=== PATIENT | male | born 1955 | race Caucasian/White ===

== ENCOUNTER 2017-01-07 11:03 | Inpatient (IN) | payer SELFPAY ==
[2017-01-07] MEDS ORDERED: NS 1,000 ML IV ONE (11:14)
[2017-01-07] MEDS ORDERED: ONDANSETRON 4 MG/2 ML VIAL IVP ONE (11:15)
[2017-01-07 12:57] LABS: ALANINE AMINOTRANSFERASE 247 IU/L (21-72); ALBUMIN 4.7 g/dL (3.5-5.0); ALKALINE PHOSPHATASE 157 IU/L (38-126); ANION GAP 20 mEq/L (8-16); ASPARTATE AMINOTRANSFERASE 578 IU/L (17-59); BILIRUBIN,TOTAL 3.6 mg/dL (0.1-1.4); BILIRUBIN-CONJUGATED 2.2 mg/dL (0.0-0.5); BILIRUBIN-UNCONJUGATED 1.4 mg/dL (0.0-1.1); CALCIUM 11.6 mg/dL (8.5-10.4); CARBON DIOXIDE 24 mEq/l (22-31); CHLORIDE 91 mEq/L (97-110); CREATININE 0.9 mg/dL (0.7-1.3); GLOMERULAR FILTRATION RATE > 60; GLUCOSE 102 mg/dL (70-100); INR 0.99 (0.83-1.16); SODIUM 135 mEq/L (134-144); TOTAL PROTEIN 8.3 g/dL (6.3-8.2)
[2017-01-07 12:58] LABS: APTT 24.3 SEC (23.0-38.0)
--- NOTE | 2017-01-07 13:04 | EDPHY ---
H & P Stated Complaint: Nausea/Vomiting x 8 days, Dark stools x 3 days Time Seen by Provider: 01/07/17 12:44 - Personal History Current Tetanus Diphtheria and Acellular Pertussis (TDAP): No Tetanus Vaccine Date: 2003 - Medical/Surgical History Hx Asthma: No Hx Chronic Respiratory Disease: No Hx Diabetes: No Hx Cardiac Disease: No Hx Renal Disease: No Hx Cirrhosis: Yes Hx Alcoholism: Yes Hx HIV/AIDS: No Hx Splenectomy or Spleen Trauma: No Other PMH: Hep C, ETOH, Pneumonia - Social History Smoking Status: Current every day smoker Constitutional: Initial Vital Signs Temperature (C) 36.3 C 01/07/17 11:11 Heart Rate 117 H 01/07/17 11:11 Respiratory Rate 18 01/07/17 11:11 Blood Pressure 152/106 H 01/07/17 11:11 O2 Sat (%) 95 01/07/17 11:11 O2 Delivery Mode Room Air Allergies/Adverse Reactions: No Known Allergies Allergy (Verified 01/07/17 11:11) Home Medications: Medication Instructions Recorded NK [No Known Home Meds] 01/07/17 Medical Decision Making - Diagnostics Imaging: Discussed imaging studies w/ order desk caller Radiologist ED Course/Re-evaluation: CHIEF COMPLAINT: Nausea vomiting dehydration black tarry stools HISTORY OF PRESENT ILLNESS: 61-year-old gentleman who lives alone. He endorses the fact that he is unable to eat much over the last 6 days due to severe vomiting. He also states he has some stocking glove type numbness pattern. He states that he used to drink significant amount alcohol but does not do that any more. 5 he denies any medical problems whatsoever. He states he has never been sick before a week to 10 days ago. He feels so lethargic and weak now from his dehydration and inability to take in food that he is having difficulty ambulating around his apartment and needs to hold onto things. Before he was ill he was completely mobile and functioning normally. REVIEW OF SYSTEMS: A 10 point review of systems was performed and is negative with the exception of the elements mentioned in the history of present illness. PHYSICAL EXAM: HR, BP, O2 Sat, RR. Temp noted General Appearance: Alert, well hydrated, appropriate, and non-toxic appearing. Head: Atraumatic without scalp tenderness or obvious injury Eyes: Pupils equal, round, reactive to light and accommodation, EOMI, no trauma , no injection. Ears: Clear bilaterally, no perforation, normal landmarks Nose: Atraumatic, no rhinorrhea, clear. Throat: There is no erythema or exudates, no lesions, normal tonsils, mucus membranes moist. Neck: Supple, nontender, no lymphadenopathy. Respiratory: No retractions, no distress, no wheezes, and no accessory muscle use. Lungs are clear to auscultation bilaterally. Cardiovascular: Regular rate and rhythm, no murmurs, rubs, or gallops. Bilateral carotid, radial, dorsalis pedis, and posterior tibial pulses intact. Good capillary refill all extremities. Gastrointestinal: Abdomen is soft, diffuse tenderness with hardness in the right upper quadrant potentially the liver, non-distended, no masses, no rebound , no guarding, no peritoneal signs. Musculoskeletal: Normal active ROM of all extremities, atraumatic. Neurological: Alert, appropriate, and interactive. The patient has normal DTRs and non-focal cranial nerves, motor, sensory, and cerebellar exam. Skin: A hint of jaundice and very dry skin. No rashes, good turgor, no nodules on palpation. Past medical history: Denies any medical history Past surgical history: Denies any surgery Family history: No significant noncontributory family history Social history: Lives alone, although patient will not endorse alcoholism he has a history of alcoholism. Denies tobacco or drug use. Not employed DIAGNOSTICS/PROCEDURES/CRITICAL CARE TIME: Study: CT of the abdomen and pelvis with IV contrast Indication: chronic nausea vomiting Results: CT scan of the abdomen pelvis was obtained. The results of the study are ascites. The study was read by the radiologist, Dr. Gutierrez. I viewed the images myself on the PACS system. DIFFERENTIAL DIAGNOSIS: The differential diagnosis for the patient's nausea and vomiting included but was not limited to gastroenteritis, gastritis, appendicitis, and medication side effect. The differential diagnosis for the patient's lower GI bleeding included but was not limited to diverticulosis, tumor, AVM, hemorrhoid, and upper GI Bleed. MEDICAL DECISION MAKING: This patient is slightly dehydrated and certainly weak and lethargic. I do get a hint of jaundice and I am concerned about liver failure in this patient. I am going to check an ammonia level also since this patient seems a bit confused at times. Additionally, he is too weak to walk around his house. I will evaluate his abdomen with a CT scan. Allergies lipase and protime are pending also. He has had some mild black tarry stools. All of patient's LFTs are elevated as is his lipase. He will require admission for hepatitis and pancreatitis. Acute hepatitis panel ordered. INR is normal. CT shows ascites, likely acute alcohol hepatitis. Spoke with hospitalist service. Dr. Woods accepts admission. - Data Points Laboratory Results: Laboratory Results 01/07/17 12:25 01/07/17 12:25 01/07/17 01/07/17 01/07/17 13:25 12:25 12:25 WBC RBC Hgb Hct MCV MCH MCHC RDW Plt Count MPV Neut % (Auto) Lymph % (Auto) Hardeman % (Auto) Eos % (Auto) Baso % (Auto) Nucleat RBC Rel Count Absolute Neuts (auto) Absolute Lymphs (auto) Absolute Monos (auto) Absolute Eos (auto) Absolute Basos (auto) Absolute Nucleated RBC Immature Gran % Seg Neutrophils % Band Neutrophils % Lymphocytes % Monocytes % Immature Gran # Absolute Seg Neuts Absolute Band Neuts Absolute Lymphocytes Absolute Monocytes Nucleated RBCs Platelet Estimate Polychromasia Smear Review By PT 13.0 SEC SEC (12.0-15.0) INR 0.99 (0.83-1.16) APTT 24.3 SEC SEC (23.0-38.0) Sodium 135 mEq/L mEq/L (134-144) Potassium 4.0 mEq/L mEq/L (3.5-5.2) Chloride 91 mEq/L L mEq/L (97-110) Carbon Dioxide 24 mEq/l mEq/l (22-31) Anion Gap 20 mEq/L H mEq/L (8-16) BUN 21 mg/dL mg/dL (7-23) Creatinine 0.9 mg/dL mg/dL (0.7-1.3) Estimated GFR > 60 Glucose 102 mg/dL H mg/dL (70-100) Calcium 11.6 mg/dL H mg/dL (8.5-10.4) Phosphorus 0.9 mg/dL L mg/dL (2.5-4.5) Total Bilirubin 3.6 mg/dL H mg/dL (0.1-1.4) Conjugated Bilirubin 2.2 mg/dL H mg/dL (0.0-0.5) Unconjugated Bilirubin 1.4 mg/dL H mg/dL (0.0-1.1) AST 578 IU/L H IU/L (17-59) ALT 247 IU/L H IU/L (21-72) Alkaline Phosphatase 157 IU/L H IU/L (38-126) Ammonia 14.0 uMOL/L uMOL/L (9.0-30.0) Total Protein 8.3 g/dL H g/dL (6.3-8.2) Albumin 4.7 g/dL g/dL (3.5-5.0) Lipase 3995 IU/L H IU/L (23-300) Hepatitis A IgM Ab Hep Bs Antigen Hep B Core IgM Ab Hepatitis C Antibody 01/07/17 01/07/17 12:25 12:05 WBC 9.84 10^3/uL H 10^3/uL (3.80-9.50) RBC 4.52 10^6/uL 10^6/uL (4.40-6.38) Hgb 16.0 g/dL g/dL (13.7-17.5) Hct 42.9 % % (40.0-51.0) MCV 94.9 fL fL (81.5-99.8) MCH 35.4 pg H pg (27.9-34.1) MCHC 37.3 g/dL H g/dL (32.4-36.7) RDW 16.0 % H % (11.5-15.2) Plt Count 73 10^3/uL L 10^3/uL (150-400) MPV 12.7 fL H fL (8.7-11.7) Neut % (Auto) 83.8 % H % (39.3-74.2) Lymph % (Auto) 11.4 % L % (15.0-45.0) Hardeman % (Auto) 3.8 % L % (4.5-13.0) Eos % (Auto) 0.0 % L % (0.6-7.6) Baso % (Auto) 0.1 % L % (0.3-1.7) Nucleat RBC Rel Count 1.1 % H % (0.0-0.2) Absolute Neuts (auto) 8.25 10^3/uL H 10^3/uL (1.70-6.50) Absolute Lymphs (auto) 1.12 10^3/uL 10^3/uL (1.00-3.00) Absolute Monos (auto) 0.37 10^3/uL 10^3/uL (0.30-0.80) Absolute Eos (auto) 0.00 10^3/uL L 10^3/uL (0.03-0.40) Absolute Basos (auto) 0.01 10^3/uL L 10^3/uL (0.02-0.10) Absolute Nucleated RBC 0.11 10^3/uL H 10^3/uL (0-0.01) Immature Gran % 0.9 % % (0.0-1.1) Seg Neutrophils % 47 % % Band Neutrophils % 40 % % Lymphocytes % 12 % % Monocytes % 1 % % Immature Gran # 0.09 10^3/uL 10^3/uL (0.00-0.10) Absolute Seg Neuts 4.62 10^/uL 10^/uL (1.70-6.50) Absolute Band Neuts 3.94 10^3/uL H 10^3/uL (0.00-0.70) Absolute Lymphocytes 1.18 10^3/uL 10^3/uL (1.00-3.00) Absolute Monocytes 0.10 10^3/uL L 10^3/uL (0.30-0.80) Nucleated RBCs 2 /100 WBC H /100 WBC (0-0) Platelet Estimate DECREASED L (ADEQ) Polychromasia 1+ H Smear Review By Pending PT INR APTT Sodium Potassium Chloride Carbon Dioxide Anion Gap BUN Creatinine Estimated GFR Glucose Calcium Phosphorus Total Bilirubin Conjugated Bilirubin Unconjugated Bilirubin AST ALT Alkaline Phosphatase Ammonia Total Protein Albumin Lipase Hepatitis A IgM Ab Pending Hep Bs Antigen Pending Hep B Core IgM Ab Pending Hepatitis C Antibody Pending Medications Given: Discontinued Medications Sodium Chloride (Ns) 1,000 mls @ 0 mls/hr IV ONCE ONE PRN Reason: Wide Open Stop: 01/07/17 11:15 Last Admin: 01/07/17 11:22 Dose: 1,000 mls Ondansetron HCl (Zofran) 4 mg IVP EDNOW ONE Stop: 01/07/17 11:16 Last Admin: 10/15/17 11:22 Dose: 4 mg Departure - Departure Disposition: [facility] Inpatient Acute Clinical Impression: Hepatitis, Dehydration, Weakness Pancreatitis Qualifiers: Chronicity: acute Pancreatitis type: alcohol induced Acute pancreatitis complication: unspecified Qualified Code(s): K85.20 - Alcohol induced acute pancreatitis without necrosis or infection Ascites Qualifiers: Ascites type: due to alcoholic hepatitis Qualified Code(s): K70.11 - Alcoholic hepatitis with ascites Nausea and vomiting Qualifiers: Vomiting type: unspecified Vomiting Intractability: intractable Qualified Code( s): R11.2 - Nausea with vomiting, unspecified Condition: Fair Referrals: Patient,NotPresent [Unknown] - As per Instructions
[2017-01-07 13:10] LABS: % IMMATURE GRANULYOCYTES 0.9 % (0.0-1.1); ABSOLUTE IMMATURE GRANULOCYTES 0.09 10^3/uL (0.00-0.10); ABSOLUTE NRBC COUNT 0.11 10^3/uL (0-0.01); ADD DIFF? NO; HEMATOCRIT 42.9 % (40.0-51.0); MEAN CELL HEMOGLOBIN 35.4 pg (27.9-34.1); MEAN CELL HEMOGLOBIN CONCENTR. 37.3 g/dL (32.4-36.7); MEAN CELL VOLUME 94.9 fL (81.5-99.8); MEAN PLATELET VOLUME 12.7 fL (8.7-11.7); PLATELET COUNT 73 10^3/uL (150-400); RED BLOOD CELL COUNT 4.52 10^6/uL (4.40-6.38)
[2017-01-07 13:16] LABS: NRBC-AUTO% 1.1 % (0.0-0.2)
[2017-01-07 13:20] LABS: ADD MORPH? YES; ADD SCAN? NO
[2017-01-07] MEDS ORDERED: IOPAMIDOL (ISOVUE-300) 100 ML BTL ONE (13:38)
[2017-01-07 14:25] LABS: PLATELET ESTIMATE DECREASED (ADEQ)
[2017-01-07 14:29] LABS: POLYCHROMASIA 1+
[2017-01-07] MEDS ORDERED: ACETAMINOPHEN 325 MG TAB PO PRN (15:23)
[2017-01-07] MEDS ORDERED: PROMETHAZINE HCL 25 MG/ML INJ IVP PRN (15:23)
[2017-01-07] MEDS ORDERED: ONDANSETRON DISINTEGRATING 4 MG TAB PO PRN (15:23)
[2017-01-07] MEDS ORDERED: oxyCODONE IR 5 MG TAB PO PRN (15:23)
[2017-01-07] MEDS ORDERED: ONDANSETRON 4 MG/2 ML VIAL IVP PRN (15:23)
[2017-01-07] MEDS ORDERED: MELATONIN 3 MG TAB PO PRN (16:30)
--- NOTE | 2017-01-07 17:09 | GHP ---
[f rep st] HISTORY AND PHYSICAL DATE OF ADMISSION: 01/07/2017 CHIEF COMPLAINT: Nausea, vomiting, inability to take p.o. HISTORY: This is a 61-year-old man who has a past medical history of alcohol abuse and chronic liver disease, as well as reported hepatitis C per him, presenting with about 10 days of difficulty eating secondary to nausea, as well as difficulty ambulating. He notes he has also had dark tarry stools f or the last several days. He notes that when he tries to the eat, he begins to feel nauseous as if h e is going to throw up, and therefore has not really been eating. He has only had a few episodes of vomiting, however. He admits to having a very heavy alcohol use history back in 2011, but states trevon t more recently he has only been drinking every couple of weeks. He has not really seen a doctor sin ce 2011 when he was told that he has liver disease that appeared to be cured. He notes this doctor w as in [place] who told him that. He denies any fevers or chills. He denies any significant abdomin al pain, though he does admit to having mild mid epigastric pain. PAST MEDICAL HISTORY: 1. Alcohol abuse. 2. Chronic liver disease/question cirrhosis. 3. Alcoholic hepatitis. 4. Question hepatitis C. PAST SURGICAL HISTORY: Umbilical hernia repair. FAMILY HISTORY: Parents are both . He notes multiple family members with alcohol abuse issu es. SOCIAL HISTORY: The patient is currently unemployed. He previously worked as a computer engineering technologist. He is single, never been . No children. He denies tobacco use. He notes that he currently drinks alcohol about 2 drinks every 2 weeks. REVIEW OF SYSTEMS: A 10-point review of systems obtained, negative except as per HPI. MEDICATIONS: 1. Multivitamin. 2. Melatonin. 3. Ibuprofen. ALLERGIES: No known drug allergies. PHYSICAL EXAM: VITAL SIGNS: BP 139/80, heart rate 113, respiratory rate 16, O2 sats 93% on room air , temperature is 36.6. GENERAL APPEARANCE: This is a chronically ill-appearing man. He is thin and somewhat disheveled. EYES: Anicteric. HEENT: Oropharynx clear. CARDIOVASCULAR: Tachycardic, re gular, no MRG. PULMONARY: CTA bilaterally to anterior exam. ABDOMEN: Soft, bowel sounds are prese nt. There is mild tenderness to palpation in the mid epigastric and right upper quadrant region with out rebound or guarding. EXTREMITIES: No clubbing, cyanosis, or edema. SKIN: Warm, dry, well perf used. NEURO/PSYCH: Oriented, appropriate, pleasant. CLINICAL DATA: Labs reviewed. White blood cell count is 9.8, hematocrit 42.9. Chemistry is notable for an anion gap of 20, total bilirubin of 3.6, AST of 578, ALT of 247, lipase of 3995. Chest x-ray personally reviewed and interpreted shows small left effusion and interstitial infiltrate on the left. Abdominal CT showing a small amount of ascites, steatohepatitis, worsening fibrosis of the liver, zee creatic calcifications are present. There are T11 and T10 compression fractures that are new from 20 11, but age indeterminate. ASSESSMENT/PLAN: This is a 61-year-old man, past medical history of alcohol abuse and chronic liver disease, who presents with what appears to be acute alcoholic hepatitis and likely alcoholic related pancreatitis. 1. Alcoholic hepatitis. His labs are consistent with that, though he denies any recent heavy alcoho l use. I do have a suspicion for underlying cirrhosis as well. He states he has been told he has he patitis C, but on review of labs here he has only a negative hep C antibody from 2012, and states trevon t it was our hospital that told me has hep C. This is being recheck. I am strongly recommending com plete cessation of alcohol, and explained to him the usual course of severe liver disease, which he s tates he understands. 2. Acute pancreatitis. This is likely an acute on chronic picture with pancreatic calcifications no navi on abdominal CT. He has only very minimal abdominal pain, and does have present bowel sounds, an d would like to try some liquids. We will start with a liquid diet and advance as tolerated. We nely l continue IV fluids. We will recheck a lipase in the morning. 3. Anion gap metabolic acidosis. Suspect this is secondary to alcoholic ketoacidosis in the setting of essentially not eating or drinking for 10 days. IV fluids will be running over night. We will r echeck in the morning. 4. Alcohol abuse. Again, the patient states this is largely in remission, though I suspect he is us ing more than he admits to. He does not have any signs of withdrawal at this time, and we will hold off on initiating CIWA protocol. 5. Gait instability. We will ask PT, OT to evaluate. He does not have any visual or cognitive defi cits to suggest Wernicke's encephalopathy, but would have a low threshold of starting high-dose johanny ine if these should develop. He may require [facility] prior to discharge home. 6. Protein calorie malnutrition. We will ask for a dietary consult. 7. Dark stools. The patient concerned that he is having a GI bleed. His H and H are normal at this time. We will check an occult blood. Suspect if this is positive that this is more related to a sl ow bleed possibly related to underlying gastritis, and that he will not require EGD or colonoscopy wh ile in house, though we will follow his counts. DISPOSITION: 1. Inpatient status. Suspect he will need greater than 48 hours stay for evaluation and management of above. 2. Patient is new to my care. Old records reviewed, summarized as per HPI and past medical history. Care plan reviewed with ER physician, including plans for treatment of pancreatitis. /[id number]/MODL
[2017-01-07] MEDS: NS 1,000 ML IV SCH ×2 (17:12→22:06)
[2017-01-07] MEDS: FOLIC ACID 1 MG TAB PO SCH (17:32)
[2017-01-07] MEDS: THIAMINE HCL 100 MG TAB PO SCH (17:33)
[2017-01-08] MEDS: NS 1,000 ML IV SCH ×3 (03:19→16:52)
[2017-01-08 05:03] LABS: % IMMATURE GRANULYOCYTES 1.4 % (0.0-1.1); ABSOLUTE IMMATURE GRANULOCYTES 0.12 10^3/uL (0.00-0.10); ABSOLUTE NRBC COUNT 0.03 10^3/uL (0-0.01); ADD DIFF? NO; ADD MORPH? NO; ADD SCAN? NO; ATYPICAL LYMPHOCYTE FLAG 0 (0-99); FRAGMENT RBC FLAG 0 (0-99); HEMATOCRIT 30.4 % (40.0-51.0); HEMOGLOBIN 11.4 g/dL (13.7-17.5); LEFT SHIFT FLG 10 (0-99); MEAN CELL HEMOGLOBIN 35.5 pg (27.9-34.1); MEAN CELL HEMOGLOBIN CONCENTR. 37.5 g/dL (32.4-36.7); MEAN CELL VOLUME 94.7 fL (81.5-99.8); MEAN PLATELET VOLUME 12.5 fL (8.7-11.7); NRBC-AUTO% 0.3 % (0.0-0.2); PLATELET CLUMPS FLAG 20 (0-99); PLATELET COUNT 67 10^3/uL (150-400); RED BLOOD CELL COUNT 3.21 10^6/uL (4.40-6.38); RED CELL DISTRIBUTION WIDTH 16.3 % (11.5-15.2)
[2017-01-08 05:07] LABS: LIPEMIA HEMOLYSIS FLAG 100 (0-99)
[2017-01-08 05:16] LABS: ALANINE AMINOTRANSFERASE 143 IU/L (21-72); ALBUMIN 2.4 g/dL (3.5-5.0); ALKALINE PHOSPHATASE 102 IU/L (38-126); ANION GAP 9 mEq/L (8-16); ASPARTATE AMINOTRANSFERASE 320 IU/L (17-59); BILIRUBIN,TOTAL 2.2 mg/dL (0.1-1.4); BILIRUBIN-CONJUGATED 1.4 mg/dL (0.0-0.5); BILIRUBIN-UNCONJUGATED 0.8 mg/dL (0.0-1.1); CALCIUM 8.8 mg/dL (8.5-10.4); CARBON DIOXIDE 20 mEq/l (22-31); CHLORIDE 103 mEq/L (97-110); CREATININE 0.7 mg/dL (0.7-1.3); GLOMERULAR FILTRATION RATE > 60; GLUCOSE 71 mg/dL (70-100); POTASSIUM 3.1 mEq/L (3.5-5.2); SODIUM 132 mEq/L (134-144); TOTAL PROTEIN 4.8 g/dL (6.3-8.2)
[2017-01-08] MEDS: THIAMINE HCL 100 MG TAB PO SCH (07:37)
[2017-01-08] MEDS: FOLIC ACID 1 MG TAB PO SCH (07:37)
[2017-01-08] MEDS ORDERED: MULTIVITAMINS 1 EACH TAB PO SCH (09:00)
[2017-01-08] MEDS ORDERED: ENOXAPARIN 40 MG/0.4 ML SYR SC SCH (09:00)
[2017-01-08] MEDS ORDERED: PROTOCOL POTASSIUM 1 DOSE MISC PRN (09:32)
[2017-01-08] MEDS ORDERED: PROTOCOL MAGNESIUM 1 DOSE IV PRN (09:32)
--- NOTE | 2017-01-08 10:28 | PDMN ---
Medical Necessity Medical necessity: Patient meets INPT criteria per physician note and [facility] Pancreatitis (likely acute alcoholic hepatitis and acute on chronic pancreatitis : 10 day hx nausea/difficulty eating, several days of dark tarry stools; lipase 3995, anion gap 20/metabolic acidosis, elevated LFT's/bili; dehydration, lethargy, tachy/HR 106 p initial IV fluids; hx chronic liver disease, alcohol abuse, Hep C; anticipated LOS > 2 midnights for ongoing IV hydration, trial of liq diet, monitoring for occult bleed.). .
[2017-01-08] MEDS ORDERED: MAGNESIUM SULF 1 GM/DEXTROSE 100 ML IV ONE (10:56)
[2017-01-08 11:40] LABS: HEMATOCRIT 33.8 % (40.0-51.0); HEMOGLOBIN 12.7 g/dL (13.7-17.5)
[2017-01-08] MEDS: POTASSIUM Cl (KCl) 100 ML IV SCH ×5 (12:36→20:30)
--- NOTE | 2017-01-08 15:26 | ASMTCASEMG ---
Living Arrangements What is your living Answers: Alone arrangement? Who do you live with? Type Of Residence What kind of residence do Answers: House you live in? Discharge Plan Comments Coordination Status Comments Notes: Pt is a 61 y/o man admitted w/ acute hepatitis, pancreatitis and dehydration. OT/PT has been ordered. OT is recommending home vs SNF. Awaiting PT is evaluate and make their recommendations. Needs are TBD at this time. CM to follow. Date Signed: 01/08/2017 03:26 PM Electronically Signed By:ÁLVARO Dubon
[2017-01-08] MEDS ORDERED: TEMAZEPAM 15 MG CAP PO PRN (17:33)
--- NOTE | 2017-01-08 17:38 | HOSPPROG ---
Hospitalist Progress Note Assessment/Plan: 1. presumed pancreatitis -IVF, clears earlier tolerated, but NPO now and GI eval requested (discussed care plan with Dr Beavers) 2. Thrombocytopenia -review of prev records shows this is new 3. Hepatitis, ? alcoholic vs acute on chronic cirrhosis -improved LFTs today - triad of thrombocytopenia/anemia/hepatitis, GI consult requested -discussed possible EGD/colonoscopy here vs as an o/p -neg hep C ab 4. Hx alcoholism -encouraged complete abstinence -PT/OT eval -will hold off on detox protocol for now as denies daily use 5. Anemia -stable on repeat -neg hemoccult but described melena at home -GI eval as above -PPI Dispo- 1-2 more mdnts depending upon GI eval Subjective: Nervous about studies/work up. Denies pain. No n/v. Says colonsocopy when 51 yo, none since. PCP Dr Yancey, but hasn't seen him in several years Objective: Vital Signs Temp Pulse Resp BP Pulse Ox 98.2 F 100 18 148/92 H 92 01/08/17 15:33 01/08/17 15:33 01/08/17 15:33 01/08/17 15:33 01/08/17 15:33 Laboratory Results 01/08/17 11:20 01/08/17 06:00 01/07/17 01/08/17 01/09/17 11:59 11:59 11:59 Intake Total 3951 Output Total 500 100 Balance 3451 -100 PT 13.0 SEC (12.0-15.0) 01/07/17 12:25 INR 0.99 (0.83-1.16) 01/07/17 12:25 - Time Spent With Patient Time Spent with Patient: greater than 35 minutes Time Spent with Patient: Greater than 35 minutes spent on this patients care, greater than 50% of time spent counseling, educating, and coordinating care regarding the above mentioned plan. - Physical Exam Constitutional: no apparent distress, appears nourished, not in pain Eyes: anicteric sclera Ears, Nose, Mouth, Throat: moist mucous membranes Cardiovascular: regular rate and rhythym, no murmur, rub, or gallop Respiratory: no respiratory distress, no rales or rhonchi, clear to auscultation Gastrointestinal: normoactive bowel sounds, soft, non-tender abdomen, no palpable masses, No ascites, No distension Skin: warm Psychiatric: interacting appropriately, not encephalopathic, anxious ICD10 Worksheet Patient Problems: Problems Problem Status Onset Ascites Acute Dehydration Acute Hepatitis Acute Nausea and vomiting Acute Pancreatitis Acute Weakness Acute Alcoholic cirrhosis Active Hypocalcemia Active Hypomagnesemia Active Hyponatremia Active Liver enzymes abnormal Active Macrocytic anemia Active Portal hypertension Active
[2017-01-08] MEDS ORDERED: D5W 1/2 NS 1,000 ML IV SCH (17:45)
[2017-01-08] MEDS ORDERED: HEPATITIS B VIRUS VACCINE-PF 20 MCG/ML VIAL IM ONE (17:46)
[2017-01-08] MEDS ORDERED: HEPATITIS A VIRUS VACCINE 1,440 UNIT/ML SYRINGE IM ONE (17:46)
[2017-01-08 18:56] LABS: POTASSIUM 3.6 mEq/L (3.5-5.2)
[2017-01-08 23:22] VITALS: BP 137/82; PULSE 93; RESP 14; TEMP 98.1; O2SAT 92
--- NOTE | 2017-01-09 07:03 | HOSPPROG ---
Hospitalist Progress Note Assessment/Plan: Cross Cover: Notified by RN that patient was planning to leave AMA. Reviewed chart: plan for EGD to evaluate complaints of melena. Discussed with patient who wanted to leave despite my advice because he was "unhappy" with his care, including not being able to sleep in the hospital. Per RN he had been verbally abusive with both her and the laboratory staff. Patient proceeded to leave AMA. Objective: Vital Signs Temp Pulse Resp BP Pulse Ox 36.7 C 93 14 137/82 H 92 01/08/17 23:22 01/08/17 23:22 01/08/17 23:22 01/08/17 23:22 01/08/17 23:22 Laboratory Results 01/08/17 11:20 01/08/17 18:37 01/08/17 01/09/17 01/10/17 05:59 05:59 05:59 Intake Total 3951 1550 Output Total 500 100 Balance 3451 1450 PT 13.0 SEC (12.0-15.0) 01/07/17 12:25 INR 0.99 (0.83-1.16) 01/07/17 12:25 ICD10 Worksheet Patient Problems: Problems Problem Status Onset Ascites Acute Dehydration Acute Hepatitis Acute Nausea and vomiting Acute Pancreatitis Acute Weakness Acute Alcoholic cirrhosis Active Hypocalcemia Active Hypomagnesemia Active Hyponatremia Active Liver enzymes abnormal Active Macrocytic anemia Active Portal hypertension Active
--- NOTE | 2017-01-09 10:41 | ASDISCHSUM ---
Discharge Information Plan Status: Medically Cleared to Leave: Discharge Date:01/09/2017 07:15 AM CM D/C Disposition: ADT D/C Disposition:Against Medical Advice Projected Discharge Date:01/09/2017 07:15 AM Transportation at D/C: Discharge Delay Reason: Follow-Up Date:01/09/2017 07:15 AM Discharge Slot: Final Diagnosis: Placement Information Patient Contact Information Contact Name:SWATI Relationship: Address: Home Phone: Work Phone: City: Alternate Phone: State/[employer] Code: Email: Financial Information Financial Class:Self-Pay Primary Plan Desc:SELF PAY Primary Plan Number: Secondary Plan Desc: Secondary Plan Number: Assessment Information [facility] Initial CM Assessment Living Arrangements What is your living Answers: Alone arrangement? Who do you live with? Type Of Residence What kind of residence do Answers: House you live in? Discharge Plan Comments Coordination Status Comments Notes: Pt is a 61 y/o man admitted w/ acute hepatitis, pancreatitis and dehydration. OT/PT has been ordered. OT is recommending home vs SNF. Awaiting PT is evaluate and make their recommendations. Needs are TBD at this time. CM to follow. Date Signed: 01/08/2017 03:26 PM Electronically Signed By:ÁLVARO Dubon Intervention Information Intervention Type:*Incorrect Registration Date of Service:01/07/2017 10:26 AM Patient Type:Inpatient Staff Member:JAMIL Ritter Susan Hours: Discipline: Severity: Comment:
== END 2017-01-09 07:15 | disposition left against medical advice (07) | DRG 438 ==
LOC: EDUNIT# → OBSVTOIN 15:25 → F3E 15:36
PROVIDERS: ADMIT Internal Medicine; ATTEND Internal Medicine
DX: K85.20 Alcohol induced acute pancreatitis without necrosis or infection (principal); E43 Unspecified severe protein-calorie malnutrition; E87.2 Acidosis; F10.188 Alcohol abuse with other alcohol-induced disorder; K70.11 Alcoholic hepatitis with ascites; D64.9 Anemia, unspecified
CPT/HCPCS: 97161-GP; 97165-GO; G0472; J2405; J3475; Q9967

== ENCOUNTER 2017-01-14 10:51 | Inpatient (IN) | payer SELFPAY ==
[2017-01-14] MEDS ORDERED: NS 1,000 ML IV ONE (11:02)
--- NOTE | 2017-01-14 11:02 | EDPHY ---
H & P Stated Complaint: hospitalized last week/left AMA sunday/weakness/cough/abd pain HPI/ROS: HPI CHIEF COMPLAINT: Abdominal pain, nausea, cough, recent hospitalization with leaving AMA. HISTORY OF PRESENT ILLNESS: Patient is a 61-year-old male, alcoholic, presents emergency room a global weakness. Patient's main complaint is that he feels weak globally. Additionally complains of some abdominal discomfort vague in nature, associated nausea. No fever. He states that he thinks he needs to be readmitted to the hospital due to his global weakness. Past Medical History: Questionable hepatitis-C, liver cirrhosis, alcohol abuse , alcohol-induced pancreatitis Past Surgical History: Umbilical hernia repair. Social History: Last drink 2-3 weeks ago. Family History: Noncontributory ROS REVIEW OF SYSTEMS: A comprehensive 10 point review of systems is otherwise negative aside from elements mentioned in the history of present illness. Exam Constitutional appears well nontoxic triage nursing summary reviewed, vital signs reviewed, awake/alert. Eyes normal conjunctivae and sclera, EOMI, PERRLA. HENT normal inspection, atraumatic, moist mucus membranes, no epistaxis, neck supple/ no meningismus, no raccoon eyes. Respiratory clear to auscultation bilaterally, normal breath sounds, no respiratory distress, no wheezing. Cardiovascular rate normal, regular rhythm, no murmur, no edema, distal pulses normal. Gastrointestinal soft, non-tender, no rebound, no guarding, normal bowel sounds, no distension, no pulsatile mass. Genitourinary no CVA tenderness. Musculoskeletal no midline vertebral tenderness, full range of motion, no calf swelling, no tenderness of extremities, no meningismus, good pulses, neurovascularly intact. Skin pink, warm, & dry, no rash, skin atraumatic. Neurologic awake, alert and oriented x 3, AAOx3, moves all 4 extremities equally, motor intact, sensory intact, CN II-XII intact, normal cerebellar, normal vision, normal speech. Psychiatric normal mood/affect. Heme/Lymph/Immune no lymphadenopathy. Differential diagnosis includes but is not limited to and in no particular order : Bowel obstruction, appendicitis, gallbladder disease, diverticulitis, colitis , enteritis, perforated viscus, gastritis, GERD, esophagitis, urinary tract infection, pyelonephritis, kidney stones Medical Decision Making: Plan for this patient IV establishment with blood draw , IV fluids for hydration, check electrolytes, lipase. Re-evaluate. I do not feel that he needs CT scan at this time. Re-evaluation: Plan will be for admission to the hospital for acute pancreatitis, dehydration, generalized weakness and electrolyte disturbance. Hypokalemia. ED x-ray chest one view negative for acute cardiopulmonary disease. EKG interpretation by me on record in [facility] system. Impression time of EKG 11:58 a.m., sinus rhythm rate of 80. Nonischemic. Unremarkable EKG. Source: Patient - Personal History Current Tetanus/Diphtheria Vaccine: No Tetanus Vaccine Date: 2003 - Medical/Surgical History Hx Asthma: No Hx Chronic Respiratory Disease: No Hx Diabetes: No Hx Cardiac Disease: No Hx Renal Disease: No Hx Cirrhosis: Yes Hx Alcoholism: Yes Hx HIV/AIDS: No Hx Splenectomy or Spleen Trauma: No Other PMH: Hep C, ETOH, Pneumonia/pancreatitis - Social History Smoking Status: Current every day smoker Constitutional: Initial Vital Signs Temperature (C) 36.4 C 01/14/17 10:56 Heart Rate 114 H 01/14/17 10:56 Respiratory Rate 20 01/14/17 10:56 Blood Pressure 127/90 H 01/14/17 10:56 O2 Sat (%) 93 01/14/17 10:56 O2 Delivery Mode Room Air Allergies/Adverse Reactions: No Known Allergies Allergy (Verified 01/14/17 10:55) Home Medications: Medication Instructions Recorded Ibuprofen [Motrin (*)] 400 mg PO DAILY PRN 01/07/17 Melatonin [Melatonin 3 MG (*)] 9 mg PO HS PRN 01/07/17 Multivitamins [Multivitamin (*)] 1 each PO DAILY 01/07/17 Nyquil 30 ml PO Q6 PRN 01/14/17 Medical Decision Making - Data Points Laboratory Results: Laboratory Results 01/14/17 11:10 01/14/17 11:10 Medications Given: Enoxaparin Sodium (Lovenox) 40 mg SC DAILY JEREMIAS Stop: 07/14/17 08:59 Last Admin: 01/15/17 08:54 Dose: 40 mg Potassium Chloride 40 meq/ (Sodium Chloride) 1,000 mls @ 150 mls/hr IV CONT JEREMIAS Stop: 07/13/17 12:14 Last Admin: 01/15/17 09:27 Dose: 1,000 mls Multivitamins (Tab-A-Linda) 1 each PO DAILY JEREMIAS Stop: 07/14/17 08:59 Last Admin: 01/15/17 08:54 Dose: 1 each Nicotine (Nicoderm Cq) 21 mg TD DAILY JEREMIAS Stop: 07/13/17 16:29 Last Admin: 01/15/17 08:56 Dose: 21 mg Discontinued Medications Sodium Chloride (Ns) 1,000 mls @ 0 mls/hr IV EDNOW ONE; Wide Open PRN Reason: Protocol Stop: 01/14/17 11:03 Last Admin: 01/14/17 11:16 Dose: 1,000 mls Potassium Chloride (Potassium Cl 10 Meq (Premix)) 100 mls @ 100 mls/hr IV Q1H JEREMIAS Stop: 01/14/17 14:14 Last Admin: 01/14/17 13:49 Dose: Not Given Magnesium Sulfate/Dextrose (Magnesium Sulf 1 Gm (Premix)) 100 mls @ 100 mls/hr IV ONCE ONE Stop: 01/14/17 13:14 Last Admin: 01/14/17 13:49 Dose: Not Given Departure - Departure Disposition: [facility] Acute Clinical Impression: Generalized weakness, Hypokalemia Pancreatitis Qualifiers: Chronicity: acute Pancreatitis type: other Acute pancreatitis complication: unspecified Qualified Code(s): K85.80 - Other acute pancreatitis without necrosis or infection Condition: Fair
[2017-01-14 11:24] LABS: % IMMATURE GRANULYOCYTES 1.5 % (0.0-1.1); ABSOLUTE IMMATURE GRANULOCYTES 0.13 10^3/uL (0.00-0.10); ADD DIFF? NO; ADD MORPH? NO; ADD SCAN? NO; ATYPICAL LYMPHOCYTE FLAG 90 (0-99); FRAGMENT RBC FLAG 10 (0-99); HEMATOCRIT 37.1 % (40.0-51.0); HEMOGLOBIN 13.4 g/dL (13.7-17.5); LEFT SHIFT FLG 10 (0-99); LIPEMIA HEMOLYSIS FLAG 90 (0-99); MEAN CELL HEMOGLOBIN 35.7 pg (27.9-34.1); MEAN CELL HEMOGLOBIN CONCENTR. 36.1 g/dL (32.4-36.7); MEAN CELL VOLUME 98.9 fL (81.5-99.8); MEAN PLATELET VOLUME 9.8 fL (8.7-11.7); PLATELET CLUMPS FLAG 10 (0-99); PLATELET COUNT 368 10^3/uL (150-400); RED BLOOD CELL COUNT 3.75 10^6/uL (4.40-6.38)
[2017-01-14 11:33] LABS: ALANINE AMINOTRANSFERASE 111 IU/L (21-72); ALBUMIN 3.5 g/dL (3.5-5.0); ALKALINE PHOSPHATASE 170 IU/L (38-126); ANION GAP 16 mEq/L (8-16); ASPARTATE AMINOTRANSFERASE 111 IU/L (17-59); BILIRUBIN,TOTAL 1.5 mg/dL (0.1-1.4); BILIRUBIN-CONJUGATED 0.7 mg/dL (0.0-0.5); BILIRUBIN-UNCONJUGATED 0.8 mg/dL (0.0-1.1); CALCIUM 9.3 mg/dL (8.5-10.4); CARBON DIOXIDE 26 mEq/l (22-31); CHLORIDE 96 mEq/L (97-110); CREATININE 0.7 mg/dL (0.7-1.3); GLOMERULAR FILTRATION RATE > 60; GLUCOSE 89 mg/dL (70-100); SODIUM 138 mEq/L (134-144); TOTAL PROTEIN 6.4 g/dL (6.3-8.2)
[2017-01-14 11:42] LABS: INR 0.94 (0.83-1.16); PROTIME(PATIENT) 12.5 SEC (12.0-15.0)
[2017-01-14 11:43] LABS: APTT 25.4 SEC (23.0-38.0)
[2017-01-14 11:44] LABS: TROPONIN I < 0.012 ng/mL (0.000-0.034)
--- NOTE | 2017-01-14 12:00 | CPEKG ---
Heart Rate: 80 RR Interval: 750 P-R Interval: 172 QRSD Interval: 84 QT Interval: 400 QTC Interval: 462 P Bolivar: 37 QRS Bolivar: 11 T Wave Bolivar: 23 EKG Severity - NORMAL ECG - EKG Impression: SINUS RHYTHM Electronically Signed By: Howie Santana 14-Jan-2017 15:24:55
[2017-01-14] MEDS ORDERED: ONDANSETRON DISINTEGRATING 4 MG TAB PO PRN (12:13)
[2017-01-14] MEDS ORDERED: PROMETHAZINE HCL 25 MG/ML INJ IVP PRN (12:13)
[2017-01-14] MEDS ORDERED: diphenhydrAMINE 25 MG CAP PO PRN (12:13)
[2017-01-14] MEDS ORDERED: oxyCODONE IR 5 MG TAB PO PRN (12:13)
[2017-01-14] MEDS ORDERED: ONDANSETRON 4 MG/2 ML VIAL IVP PRN (12:13)
[2017-01-14] MEDS ORDERED: PROMETHAZINE HCL 25 MG TAB PO PRN (12:13)
[2017-01-14] MEDS ORDERED: MAGNESIUM SULF 1 GM/DEXTROSE 100 ML IV ONE (12:15)
[2017-01-14 12:41] LABS: HEMATOCRIT 37.6 % (40.0-51.0)
[2017-01-14 12:50] LABS: C-REACTIVE PROTEIN 33.6 mg/L (<10.0)
[2017-01-14] MEDS: POTASSIUM Cl (KCl) 40 MEQ in NS 1,000 ML IV SCH ×2 (12:56→19:43)
[2017-01-14] MEDS: POTASSIUM Cl (KCl) 100 ML IV SCH (13:49)
[2017-01-14 15:41] LABS: COLOR AMBER; LEUKOCYTE ESTERASE,URINE NEGATIVE (NEGATIVE); NITRITE,URINE NEGATIVE (NEGATIVE)
--- NOTE | 2017-01-14 16:15 | PDGENHP ---
History and Physical - Chief Complaint Acute weakness - History of Present Illness Primary care provider: Dr. Tera Yancey HPI: 61-year-old male presenting with acute weakness characterized as global, with associated abdominal pain located in the left lower quadrant and right upper quadrant and associated with nausea and nonbloody loose bowel movements. Reports the onset of the weakness and abdominal pain was approximately 1 week ago and the duration has been intermittent thereafter. He reports no alleviation of the abdominal pain with bowel movements, and he has not been taking any pain Rx. The weakness seems to result from exertional shortness of breath, which has been progressively worsening for quite sometime, but he denies overt chest pain. He reports his muscles feel heavy with exertion, and his exercise tolerance has considerably diminished recently. He has also unintentionally lost weight, from lack of appetite, and has attempted to take Muscle Milk, with resulted in one episode of vomiting. That said, he is currently hungry and requesting a diet order. History Information - Allergies/Home Medication List Allergies/Adverse Reactions: No Known Allergies Allergy (Verified 01/14/17 10:55) Home Medications: Ibuprofen [Motrin (*)] 400 mg PO DAILY PRN 01/07/17 [Last Taken Unknown] Melatonin [Melatonin 3 MG (*)] 9 mg PO HS PRN 01/07/17 [Last Taken Unknown] Multivitamins [Multivitamin (*)] 1 each PO DAILY 01/07/17 [Last Taken 01/07/17] Nyquil 30 ml PO Q6 PRN 01/14/17 [Last Taken 01/13/17] I have personally reviewed and updated: family history, medical history, social history, surgical history - Past Medical History Additional medical history: Alcoholism with intermittent periods of binging, then sobriety. Alcohol induced hepatitis. Pancreatitis - Surgical History Additional surgical history: Umbilical hernia repair - Family History Additional family history: Father w/ CAD and GA at age 67, hx of alcohol abuse, Mother w/ AD - Social History Smoking Status: Current every day smoker Alcohol Use: Heavy Drug Use: None Additional social history: iADLs, lives in [facility] Review of Systems Review of Systems: ROS: 10pt was reviewed & negative except for what was stated in HPI & below EENMT: Reports: other ("cold") Respiratory: Reports: shortness of breath Gastrointestinal: Reports: diarrhea, nausea Neurological: Reports: weakness Physical Exam Physical Exam: Temp Pulse Resp BP Pulse Ox 36.7 C 86 14 130/87 H 95 01/14/17 15:32 01/14/17 15:32 01/14/17 15:32 01/14/17 15:32 01/14/17 15:32 Constitutional: no apparent distress, not in pain, chronically ill appearing, No uncomfortable Eyes: PERRL, anicteric sclera, EOMI Ears, Nose, Mouth, Throat: moist mucous membranes, hearing normal, ears appear normal, no oral mucosal ulcers Cardiovascular: regular rate and rhythym, no murmur, rub, or gallop, No edema Respiratory: other (cough provoked by deep inspiration), No expiratory wheeze, No inspiratory crackles, No bronchial breath sounds, No respiratory distress Gastrointestinal: normoactive bowel sounds, other (hepatomegally but non-tender) , No tenderness, No guarding, No distension Genitourinary: no bladder fullness, no bladder tenderness, other (no CVA tenderness) Skin: other (flaking, dry) Musculoskeletal: full muscle strength Neurologic: AAOx3, sensation intact bilaterally, CN II-XII Intact, No weakness ( motor 5/5 bilat UE/LE) Psychiatric: interacting appropriately, not anxious, not encephalopathic, thought process linear, No agitated Lab Data & Imaging Review 01/14/17 11:10 01/14/17 11:10 WBC 8.86 10^3/uL (3.80-9.50) 01/14/17 11:10 RBC 3.75 10^6/uL (4.40-6.38) L 01/14/17 11:10 Hgb 13.4 g/dL (13.7-17.5) L 01/14/17 11:10 Hct 37.6 % (40.0-51.0) L 01/14/17 11:10 MCV 98.9 fL (81.5-99.8) 01/14/17 11:10 MCH 35.7 pg (27.9-34.1) H 01/14/17 11:10 MCHC 36.1 g/dL (32.4-36.7) 01/14/17 11:10 RDW 19.0 % (11.5-15.2) H 01/14/17 11:10 Plt Count 368 10^3/uL (150-400) 01/14/17 11:10 MPV 9.8 fL (8.7-11.7) 01/14/17 11:10 Neut % (Auto) 63.3 % (39.3-74.2) 01/14/17 11:10 Lymph % (Auto) 23.4 % (15.0-45.0) 01/14/17 11:10 [place] % (Auto) 8.9 % (4.5-13.0) 01/14/17 11:10 Eos % (Auto) 1.5 % (0.6-7.6) 01/14/17 11:10 Baso % (Auto) 1.4 % (0.3-1.7) 01/14/17 11:10 Nucleat RBC Rel Count 0.0 % (0.0-0.2) 01/14/17 11:10 Absolute Neuts (auto) 5.62 10^3/uL (1.70-6.50) 01/14/17 11:10 Absolute Lymphs (auto) 2.07 10^3/uL (1.00-3.00) 01/14/17 11:10 Absolute Monos (auto) 0.79 10^3/uL (0.30-0.80) 01/14/17 11:10 Absolute Eos (auto) 0.13 10^3/uL (0.03-0.40) 01/14/17 11:10 Absolute Basos (auto) 0.12 10^3/uL (0.02-0.10) H 01/14/17 11:10 Absolute Nucleated RBC 0.00 10^3/uL (0-0.01) 01/14/17 11:10 Immature Gran % 1.5 % (0.0-1.1) H 01/14/17 11:10 Immature Gran # 0.13 10^3/uL (0.00-0.10) H 01/14/17 11:10 ESR 26 MM/HR (0-20) H 01/14/17 11:10 PT 12.5 SEC (12.0-15.0) 01/14/17 11:10 INR 0.94 (0.83-1.16) 01/14/17 11:10 APTT 25.4 SEC (23.0-38.0) 01/14/17 11:10 VBG Lactic Acid 1.0 mmol/L (0.7-2.1) 01/14/17 15:00 Sodium 138 mEq/L (134-144) 01/14/17 11:10 Potassium 3.0 mEq/L (3.5-5.2) L 01/14/17 11:10 Chloride 96 mEq/L (97-110) L 01/14/17 11:10 Carbon Dioxide 26 mEq/l (22-31) 01/14/17 11:10 Anion Gap 16 mEq/L (8-16) 01/14/17 11:10 BUN 13 mg/dL (7-23) 01/14/17 11:10 Creatinine 0.7 mg/dL (0.7-1.3) 01/14/17 11:10 Estimated GFR > 60 01/14/17 11:10 Glucose 89 mg/dL (70-100) 01/14/17 11:10 Calcium 9.3 mg/dL (8.5-10.4) 01/14/17 11:10 Total Bilirubin 1.5 mg/dL (0.1-1.4) H 01/14/17 11:10 Conjugated Bilirubin 0.7 mg/dL (0.0-0.5) H 01/14/17 11:10 Unconjugated Bilirubin 0.8 mg/dL (0.0-1.1) 01/14/17 11:10 AST 111 IU/L (17-59) H 01/14/17 11:10 ALT 111 IU/L (21-72) H 01/14/17 11:10 Alkaline Phosphatase 170 IU/L (38-126) H 01/14/17 11:10 Creatine Kinase 39 IU/L (0-224) 01/14/17 11:10 Troponin I < 0.012 ng/mL (0.000-0.034) 01/14/17 11:10 C-Reactive Protein 33.6 mg/L (<10.0) H 01/14/17 11:10 Total Protein 6.4 g/dL (6.3-8.2) 01/14/17 11:10 Albumin 3.5 g/dL (3.5-5.0) 01/14/17 11:10 Lipase 981 IU/L (23-300) H 01/14/17 11:10 Urine Color ROSE MARY 01/14/17 15:15 Urine Appearance CLEAR 01/14/17 15:15 Urine pH 8.0 (5.0-7.5) H 01/14/17 15:15 Ur Specific [place] 1.019 (1.002-1.030) 01/14/17 15:15 Urine Protein NEGATIVE (NEGATIVE) 01/14/17 15:15 Urine Ketones NEGATIVE (NEGATIVE) 01/14/17 15:15 Urine Blood NEGATIVE (NEGATIVE) 01/14/17 15:15 Urine Nitrate NEGATIVE (NEGATIVE) 01/14/17 15:15 Urine Bilirubin NEGATIVE (NEGATIVE) 01/14/17 15:15 Urine Urobilinogen 2.0 EU (0.2-1.0) H 01/14/17 15:15 Ur Leukocyte Esterase NEGATIVE (NEGATIVE) 01/14/17 15:15 Urine Glucose NEGATIVE (NEGATIVE) 01/14/17 15:15 Visualized and Interpreted Chest x-ray results: Yes Chest X-Ray results: other (peribronchial thickening) Visualized and Interpreted EKG results: Yes EKG Interpretation: Positive for: other (NSR w/ Q in lead III) Assessment & Plan Assessment: 61 yo M p/w acute generalized weakness in setting of alcoholism Plan: # Generalized weakness. Acute, new problem, further w/u indicated. Potential etiologies include EtOH-induced myopathy vs. rheumatologic myositis vs. deconditioning in setting of recent hospitalization vs. undiagnosed CAD vs. cardiomyopathy. - get Echo - get Lexiscan stress - get RVP to r/o infxn - get ESR/CRP/CPK to eval for rheum causes (polymyositis, dermatomyositis, PMR) , and, if positive and above w/u negative, consider pred 20mg daily trial w/ outpt rheum referral - cont to encourage EtOH abstinence, get PT/OT evals - dietary consult w/ supplements given recent weight loss # Alcoholism. Encourage abstinence, has not drank since prior to last admit, no indication for CIWA - reviewed outside records (01/07/17 CT abd w/ fibrosis/hepatosteatosis) likely 2/2 alcohol, correlates w/ LFTs - cont monitor LFTs, no further liver imaging at this juncture - check A1c given pancreatic injury # Hypokalemia. Likely 2/2 poor oral intake and ongoing diarrhea, replace w/ IVF Diet. Reg w/ ensure/smoothie PPx. High risk, lovenox 40 Code. Full Dispo. ADD 01/15, pending further w/u as outlined above. Discussed with Ondina Sanchez, hospitalist, she has signed patient out to me for evaluation.
--- NOTE | 2017-01-14 16:20 | ASMTCMCOM ---
CM Note CM Note Notes: 01/14/2017 Case Management Note Reviewed chart. Pt recently admitted to [facility] on 01/07/2017, left AMA on 01/09/2017. Pt is single. Pt has history of ETOH use, admitted for general weakness, pancreatitis and hypokalemia. Case Management d/c poc: to be determined after PT and OT evaluate pt and make recommendations. Case Management to follow. Date Signed: 01/14/2017 04:20 PM Electronically Signed By:Paz Alberto RN
[2017-01-14] MEDS ORDERED: NICOTINE POLACRILEX 2 MG GUM B PRN (16:26)
[2017-01-14] MEDS: NICOTINE 21 MG/24 HR PATCH TD SCH (16:43)
[2017-01-14] MEDS ORDERED: MELATONIN 3 MG TAB PO PRN (17:59)
[2017-01-15 04:47] LABS: % IMMATURE GRANULYOCYTES 1.5 % (0.0-1.1); ABSOLUTE IMMATURE GRANULOCYTES 0.12 10^3/uL (0.00-0.10); ADD DIFF? NO; ADD MORPH? NO; ADD SCAN? NO; ATYPICAL LYMPHOCYTE FLAG 50 (0-99); FRAGMENT RBC FLAG 10 (0-99); HEMOGLOBIN 10.7 g/dL (13.7-17.5); LEFT SHIFT FLG 10 (0-99); LIPEMIA HEMOLYSIS FLAG 90 (0-99); MEAN CELL HEMOGLOBIN 35.5 pg (27.9-34.1); MEAN CELL HEMOGLOBIN CONCENTR. 35.7 g/dL (32.4-36.7); MEAN CELL VOLUME 99.7 fL (81.5-99.8); MEAN PLATELET VOLUME 9.8 fL (8.7-11.7); PLATELET CLUMPS FLAG 10 (0-99); PLATELET COUNT 333 10^3/uL (150-400); RED BLOOD CELL COUNT 3.01 10^6/uL (4.40-6.38); RED CELL DISTRIBUTION WIDTH 19.2 % (11.5-15.2)
[2017-01-15 05:10] LABS: ALANINE AMINOTRANSFERASE 77 IU/L (21-72); ALBUMIN 2.4 g/dL (3.5-5.0); ALKALINE PHOSPHATASE 121 IU/L (38-126); ANION GAP 10 mEq/L (8-16); ASPARTATE AMINOTRANSFERASE 66 IU/L (17-59); CARBON DIOXIDE 20 mEq/l (22-31); CHLORIDE 108 mEq/L (97-110); CREATININE 0.7 mg/dL (0.7-1.3); GLOMERULAR FILTRATION RATE > 60; GLUCOSE 83 mg/dL (70-100); MAGNESIUM 1.2 mg/dL (1.6-2.3); POTASSIUM 3.6 mEq/L (3.5-5.2); SODIUM 138 mEq/L (134-144); TOTAL PROTEIN 4.8 g/dL (6.3-8.2)
[2017-01-15] MEDS: MULTIVITAMINS 1 EACH TAB PO SCH (08:54)
[2017-01-15] MEDS: ENOXAPARIN 40 MG/0.4 ML SYR SC SCH (08:54)
[2017-01-15] MEDS: NICOTINE 21 MG/24 HR PATCH TD SCH (08:56)
[2017-01-15] MEDS: POTASSIUM Cl (KCl) 40 MEQ in NS 1,000 ML IV SCH (09:27)
--- NOTE | 2017-01-15 11:03 | ECHO ---
[email or web address] [address] [address] Main: [phone] Fax: [email or web address] Echocardiogram Name: EVAN ABEL MR#: [id number] Study Date: 01/15/2017 Study Time: 08:41 AM Date of : 1955 Age: 61 year(s) Height: 172.7 cm (68 in.) Weight: 65.77 kg (145 lb.) BSA: 1.78 m2 Gender: Male Examination: Echo Indication: Cough, Shortness of breath, Eval for Cardiomyopathy Image Quality: Contrast: Requested by: Nando Fink BP: 141 mmHg/86 mmHg Heart Rate: Rhythm: Normal sinus rhythm Indication: Cough, Shortness of breath, Eval for Cardiomyopathy Procedure Staff Family Psychologist: Jose Moe Physician: Nando Mijares Requesting Provider: Conclusions: Normal global systolic LV function. EF is 71 %. Diastolic dysfunction is present. . Measurements: Chambers Valvular Assessment AV/MV Valvular Assessment TV/PV Normal Normal Normal Name Value Range Name Value Range Name Value Range Ao Nancy (MM): 3.2 cm (2.2 cm-3.7 AV Vmax: 0.91 m/s (1 m/s-1.7 TR Vmax: 2.67 mm/s ( - ) cm) m/s) TR PGmax: 29 mmHg ( - ) IVSd (2D): 1.0 cm (0.6 cm-1.1 AV maxP mmHg ( - ) syst. PAP: 34 mmHg ( - ) cm) LVOT Vmax: 0.76 m/s (0.7 m/s-1.1 PV Vmax: 0.86 m/s (0.6 m/s-0.9 LVDd (2D): 4.2 cm (4.2 cm-5.9 m/s) m/s) cm) MV E Vmax: 0.62 m/s ( - ) PV PGmax: 3 mmHg ( - ) LVDs (2D): 2.5 cm (2.1 cm-4 MV A Vmax: 0.91 m/s ( - ) cm) MV E/A: 0.68 ( - ) LVPWd (2D): 1.0 cm (0.6 cm-1 cm) LVEF (2D): 71 (>=54 %) Continued Measurements: Chambers Valvular Assessment AV/MV Valvular Assessment TV/PV Name Value Name Value Name Value LADs Lon.1 cm MV E/E' Septal: 11.10 CVP (est.): 5 mmHg LA Area: 16.5 cm2 MV E/E' Lateral: 6.40 Patient: EVAN ABEL Study Date: 01/15/2017 Page 1 of 2 08:41 AM Findings: Left Ventricle: Normal size left ventricle. No LV hypertrophy. Normal global systolic LV function. EF is 71 %. No regional wall motion abnormality. Diastolic dysfunction is present. . Right Ventricle: Normal size right ventricle. Normal RV function. Left Atrium: The left atrium is normal in size. Right Atrium: The right atrium is normal in size. Mitral Valve: The mitral valve is normal in appearance and function. There is no mitral valve regurgitation. Aortic Valve: The aortic valve is tri-leaflet and functions normally. There is no aortic valve regurgitation. Tricuspid Valve: The tricuspid valve is normal in appearance and function. Trivial tricuspid valve regurgitation. The pulmonary artery pressure is normal. Pulmonic Valve: The pulmonic valve is normal in appearance and function. Aorta: The aorta is normal. Pericardium: No pericardial effusion. (No Signature Object) Patient: EVAN ABEL Study Date: 01/15/2017 Page 2 of 2 08:41 AM [id number]
[2017-01-15] MEDS ORDERED: MAGNESIUM SULF 2 GM/WATER 50 ML IV ONE (15:23)
--- NOTE | 2017-01-15 15:42 | HOSPPROG ---
Hospitalist Progress Note Assessment/Plan: Assessment: 61 yo M p/w acute generalized weakness in setting of alcoholism Plan: # Generalized weakness. Acute, 2/2 either obstructive CAD vs. enteroviral syndrome - Echo w/o cardiomyopathy, given concerning story for exertional SOB, recommend urgent nuc vic stress test - cont to encourage EtOH abstinence, get PT/OT evals - dietary consult w/ supplements given recent weight loss # Enteroviral syndrome. Resulting in diarrhea, gen weakness - ESR/CRP elevations likely 2/2 enterovirus # Alcoholism. Encourage abstinence, has not drank since prior to last admit, no indication for CIWA - cont monitor LFTs, no further liver imaging at this juncture - a1c pending # Hypokalemia. Likely 2/2 poor oral intake and ongoing diarrhea, replace w/ IVF w/ K/Mg Diet. Reg w/ ensure/smoothie PPx. High risk, lovenox 40 Code. Full Dispo. ADD 01/16, pending stress test, upgrade to INPT given anticipated LOS > 48hrs for reasonable medical necessity including possible myocardial ischemia/ CAD requiring further diagnostic testing. Subjective: reports ongoing diarrhea, declined stress test this AM, now he is amenable after d/w sister Objective: Vital Signs Temp Pulse Resp BP Pulse Ox 36.6 C 81 18 136/85 H 96 01/15/17 12:25 01/15/17 12:25 01/15/17 12:25 01/15/17 12:25 01/15/17 12:25 Microbiology 01/14/17 16:15 Respiratory Panel (PCR) - Final Nasal, Sinus - Swab Human Rhinovirus/Enterovirus Laboratory Results 01/15/17 04:30 01/15/17 04:30 01/14/17 01/15/17 01/16/17 05:59 05:59 05:59 Intake Total 1000 2640 Output Total 200 250 Balance 800 2390 PT 12.5 SEC (12.0-15.0) 01/14/17 11:10 INR 0.94 (0.83-1.16) 01/14/17 11:10 - Physical Exam Constitutional: no apparent distress, appears nourished, not in pain, chronically ill appearing, No uncomfortable Gastrointestinal: normoactive bowel sounds, soft, non-tender abdomen, no palpable masses, other (hepatomegally), No guarding, No distension Neurologic: AAOx3, other (no tremulousness), No facial droop Psychiatric: interacting appropriately, not anxious, not encephalopathic, thought process linear, No agitated ICD10 Worksheet Patient Problems: Problems Problem Status Onset Portal hypertension Active Macrocytic anemia Active Hyponatremia Active Alcoholic cirrhosis Active Hypomagnesemia Active Liver enzymes abnormal Active Hypocalcemia Active Pancreatitis Acute Hepatitis Acute Ascites Acute Nausea and vomiting Acute Dehydration Acute Weakness Acute Hypokalemia Acute
--- NOTE | 2017-01-15 16:08 | PDMN ---
Medical Necessity Medical necessity: M170 gastroenteritis- ongoing weakness , diarrhea, poss myocardial ischemia/CAD req further eval > 2 midnights, ongoing IV fluids needed w/ K, MG replacements
--- NOTE | 2017-01-15 16:47 | ASMTCMCOM ---
CM Note CM Note Notes: CM spoke w/ JAMIL Ureña. PT and OT are recommending home, independent. Pts stress test has been rescheduled for tomorrow morning. Anticipates that pt will d/c tomorrow. CM met w/ pt for dispo planning. Pt is refusing ETOH resources. Pt reports that he has supportive friends and goes to AA. Pt listed a number of structured activities that he engages in. CM available for changes. Date Signed: 01/15/2017 04:46 PM Electronically Signed By:ÁLVARO Dubon
[2017-01-15 23:11] VITALS: TEMP 97.9
[2017-01-16] MEDS: POTASSIUM Cl (KCl) 40 MEQ in NS 1,000 ML IV SCH (00:09)
[2017-01-16 05:38] LABS: ALANINE AMINOTRANSFERASE 93 IU/L (21-72); ALBUMIN 2.8 g/dL (3.5-5.0); ALKALINE PHOSPHATASE 126 IU/L (38-126); ANION GAP 9 mEq/L (8-16); ASPARTATE AMINOTRANSFERASE 100 IU/L (17-59); BILIRUBIN,TOTAL 1.1 mg/dL (0.1-1.4); CARBON DIOXIDE 19 mEq/l (22-31); CHLORIDE 108 mEq/L (97-110); CREATININE 0.6 mg/dL (0.7-1.3); GLOMERULAR FILTRATION RATE > 60; GLUCOSE 81 mg/dL (70-100); MAGNESIUM 1.6 mg/dL (1.6-2.3); POTASSIUM 4.7 mEq/L (3.5-5.2); SODIUM 136 mEq/L (134-144); TOTAL PROTEIN 5.3 g/dL (6.3-8.2)
[2017-01-16 08:23] VITALS: BP 135/89; PULSE 82; RESP 20; O2SAT 93
--- NOTE | 2017-01-16 09:47 | PDDCSUM ---
Discharge Summary Discharge Summary: DISCHARGE SUMMARY FOLLOW-UP ITEMS: Outpatient PCP follow-up, consider nuclear medicine stress test if still experiencing exertional weakness DATE OF ADMISSION: 01/14/2017 DATE OF DISCHARGE: 01/16/2017 DISCHARGE DIAGNOSES: 1. Acute enteroviral syndrome 2. Acute generalized weakness 3. Chronic alcoholism with transaminitis 4. Acute hypokalemia CONSULTATIONS: None PROCEDURES / IMAGING: Echocardiogram demonstrating normal ejection fraction, normal valves CHIEF COMPLAINT: Acute weakness SUBJECTIVE: Patient is feeling stronger at time of discharge PHYSICAL EXAM ON DISCHARGE: Systolic blood pressure 135, heart rate 82, satting 93% on room air, afebrile overnight, alert awake oriented x3, no apparent distress, slightly chronically ill-appearing LABS ON DISCHARGE: White blood cell count 7800, hemoglobin 10.7, ESR 26, serum sodium 136, potassium 4.7, serum bicarb 19, creatinine 0.6, AST 100, ALT 90, alk-phos 130, albumin 2.8, CRP 34, respiratory viral panel positive for rhinovirus and enterovirus HOSPITAL COURSE BY PROBLEM: The patient presented with acute generalized weakness following a recent hospitalization for acute pancreatitis. I believe the most likely cause of his weakness has a combination of deconditioning from his recent hospitalization as well as concomitant enterovirus infection, resulting in diarrhea, hypokalemia, viral syndrome. After receiving IV fluids and physical therapy, the patient is feeling improved. He had an echocardiogram which demonstrated normal ejection fraction and normal wall motion. Given the patient is feeling better and has been identifiable etiology of his weakness, he does not require further cardiac risk stratification at this time. I recommended that the patient follow up with an outpatient primary care provider, and reassess whether he continues to experience any exertional symptoms, and if so, then pursue an outpatient nuclear medicine stress test. In the meantime, I recommend that he take aspirin 81 mg for CAD prevention. DISCHARGE MEDICATIONS: Please see official discharge medication reconciliation sheet in chart , continue home medications, add aspirin 81 mg daily. DISCHARGE INSTRUCTIONS: [facility], provider being scheduled through our case management department prior to discharge. TIME SPENT: Greater than 30 minutes were spent on direct patient care, as well as discharge planning and preparation.
--- NOTE | 2017-01-16 10:43 | ASDISCHSUM ---
Discharge Information Plan Status:Home with No Needs Medically Cleared to Leave:01/16/2017 Discharge Date:01/16/2017 10:09 AM CM D/C Disposition: ADT D/C Disposition:Home, Routine, Self-Care Projected Discharge Date:01/16/2017 12:00 AM Transportation at D/C: Discharge Delay Reason: Follow-Up Date:01/16/2017 12:00 AM Discharge Slot: Final Diagnosis: Placement Information Patient Contact Information Contact Name:SWATI Relationship: Address: Home Phone: Work Phone: City: Alternate Phone: State/[place] Code: Email: Financial Information Financial Class:Self-Pay Primary Plan Desc:SELF PAY Primary Plan Number: Secondary Plan Desc: Secondary Plan Number: Assessment Information [facility] CM Progress Note CM Note CM Note Notes: 01/14/2017 Case Management Note Reviewed chart. Pt recently admitted to [facility] on 01/07/2017, left AMA on 01/09/2017. Pt is single. Pt has history of ETOH use, admitted for general weakness, pancreatitis and hypokalemia. Case Management d/c poc: to be determined after PT and OT evaluate pt and make recommendations. Case Management to follow. Date Signed: 01/14/2017 04:20 PM Electronically Signed By:Paz Alberto RN [facility] CM Progress Note CM Note CM Note Notes: CM spoke w/ JAMIL Ureña. PT and OT are recommending home, independent. Pts stress test has been rescheduled for tomorrow morning. Anticipates that pt will d/c tomorrow. CM met w/ pt for dispo planning. Pt is refusing ETOH resources. Pt reports that he has supportive friends and goes to . Pt listed a number of structured activities that he engages in. NIKYK available for changes. Date Signed: 01/15/2017 04:46 PM Electronically Signed By:ÁLVARO Dubon [facility] Progress Note CM Note CM Note Notes: NIKKY spoke w/ Dr. Fink regarding d/c POC. Pt is discharging independent today. NIKKY scheduled a new PCP appointment w/ [facility]. Follow up appointment has been inputted into discharge section of [facility]. CM available for changes. Date Signed: 01/16/2017 10:42 AM Electronically Signed By:ÁLVARO Dubon Intervention Information Intervention Type:*Incorrect Registration Date of Service:01/14/2017 12:15 PM Patient Type:Observation Staff Member:JAMIL Manjarrez Shelly Hours:0.25 Discipline: Severity:1 (0-1 Hours) Comment:Registered inpatient admit order yoselin en observation status.
--- NOTE | 2017-01-16 10:43 | ASMTCMCOM ---
CM Note CM Note Notes: CM spoke w/ Dr. Fink regarding d/c POC. Pt is discharging independent today. CM scheduled a new PCP appointment w/ [facility]. Follow up appointment has been inputted into discharge section of [facility]. CM available for changes. Date Signed: 01/16/2017 10:42 AM Electronically Signed By:ÁLVARO Dubon
[2017-01-16] MEDS: MULTIVITAMINS 1 EACH TAB PO SCH (11:23)
[2017-01-16] MEDS: NICOTINE 21 MG/24 HR PATCH TD SCH (11:23)
[2017-01-16] MEDS: ENOXAPARIN 40 MG/0.4 ML SYR SC SCH (11:23)
== END 2017-01-16 10:09 | disposition home or self-care (01) | DRG 392 ==
LOC: INTOOBSV 11:56 → F3E 12:43 → OBSVTOIN 01-15 16:08
PROVIDERS: ADMIT Internal Medicine; ATTEND Internal Medicine
DX: A08.39 Other viral enteritis (principal); R53.1 Weakness; B97.19 Other enterovirus as the cause of diseases classified elsewhere; F10.20 Alcohol dependence, uncomplicated; R74.0 Nonspecific elevation of levels of transaminase and lactic acid dehydrogenase [LDH]; E87.6 Hypokalemia; Z72.0 Tobacco use
CPT/HCPCS: 97161-GP; 97165-GO; G0378; J1650